=== PATIENT | female | born 1950 | race Caucasian/White ===

== ENCOUNTER → 2018-01-13 13:47 | Outpatient (CLI) | payer MEDICARE, SELFPAY ==
[2018-01-13 14:27] LABS: INR 1.71 (0.9-1.1); Prothrombin Time 17.3 seconds (9.4-11.8)
== END ==
PROVIDERS: PCP Family Medicine; Visit Provider Family Medicine
DX: Z51.81 Encounter for therapeutic drug level monitoring (principal); Z79.01 Long term (current) use of anticoagulants
CPT/HCPCS: 36415; 85610

== ENCOUNTER → 2018-01-20 12:44 | Outpatient (CLI) | payer MEDICARE, SELFPAY ==
[2018-01-20 14:13] LABS: INR 1.51 (0.9-1.1); Prothrombin Time 15.4 seconds (9.4-11.8)
== END ==
PROVIDERS: Visit Provider Family Medicine
DX: Z51.81 Encounter for therapeutic drug level monitoring (principal); Z79.01 Long term (current) use of anticoagulants
CPT/HCPCS: 36415; 85610